=== PATIENT | male | born 1965 | race Caucasian/White ===

== ENCOUNTER 2021-10-28 11:54 | Outpatient (CLI) | payer OTHER | END 2021-10-28 11:55 | disposition home or self-care (01) | LOC: BURRAD 11:54 | PROVIDERS: ATTEND Family Medicine | DX: M54.50 Low back pain, unspecified (principal); I10 Essential (primary) hypertension; M47.816 Spondylosis without myelopathy or radiculopathy, lumbar region | CPT/HCPCS: 72100 ==

== ENCOUNTER 2023-10-28 12:46 | Outpatient (CLI) | payer OTHER ==
[2023-10-28 13:19] LABS: Anion Gap 13 mmol/L (10-20); BUN (Urea Nitrogen) 5 mg/dL (8.4-25.7); Calc. Creatinine Clearance 0 mL/min (70-130); Carbon Dioxide 20 mmol/L (22-29); Chloride 99 mmol/L (98-107); Estimated GFR 106; Glucose 92 mg/dL (70-105); Potassium 4.2 mmol/L (3.5-5.1); Sodium 128 mmol/L (136-145)
== END 2023-10-28 12:47 | disposition home or self-care (01) ==
LOC: BURLAB 12:46
PROVIDERS: ATTEND Internal Medicine Nephrology
DX: N18.1 Chronic kidney disease, stage 1 (principal)
CPT/HCPCS: 36415; 80048